=== PATIENT | female | born 1975 | race Caucasian/White ===

== ENCOUNTER 2018-03-19 16:18 | Emergency (ER) | payer OTHER ==
[~2018-03-19] VITALS: Ht 170.2 cm; Wt 123.3 kg
[2018-03-19 18:45] LABS: HEMOGLOBIN 12.7 G/DL (11.9-15.5); MCHC 34.3 G/DL (30.0-36.0); MCV 90.2 FL (83-99); PLATELET COUNT 220 K/uL (156-360); RBC DIS.WIDTH-CV 12.8 % (11.8-14.6); RBC DIS.WIDTH-SD 42.2 % (39-53); WHITE BLOOD COUNT 10.7 K/uL (4.1-10.2)
[2018-03-19] MEDS ORDERED: MOTRIN600 MG PO (18:53)
[2018-03-19] MEDS ORDERED: SEROQUEL100 MG PO (18:53)
[2018-03-19] MEDS ORDERED: NICODERM CQ1 EACH TD (18:53)
[2018-03-19] MEDS ORDERED: DESYREL 150 MG150 MG PO (18:55)
[2018-03-19] MEDS ORDERED: NYAMYC60 GM TP (18:55)
[2018-03-19] MEDS ORDERED: WELLBUTRIN SR100 MG PO (18:55)
[2018-03-19 19:13] LABS: CHLORIDE 102 mEq/L (99-109); POTASSIUM 4.1 mEq/L (3.7-5.4); SODIUM 139 mEq/L (136-147)
[2018-03-19 19:15] LABS: GLUCOSE 109 mg/dL (70-99)
[2018-03-19 19:19] LABS: GFR ESTIMATE (CALCULATED) > 59 mL/min/
[2018-03-19 19:20] LABS: UREA NITROGEN (BUN) 18 mg/dL (9-23)
[2018-03-19 19:27] LABS: QUANTITATIVE HCG < 4.0 MIU/ML
[2018-03-19 20:13] LABS: APPEARANCE SL.HAZY ((CLEAR)); BILIRUBIN NEGATIVE; BLOOD NEGATIVE; COLOR YELLOW ((YELLOW)); GLUCOSE (STRIP) NEGATIVE; KETONES NEGATIVE; LEUKOCYTES NEGATIVE; NITRITE NEGATIVE; PROTEIN (STRIP) NEGATIVE; UROBILINOGEN 0.2 MG/DL (0.2-1.0)
[2018-03-19 20:23] VITALS: BP 144/81
[2018-03-19 20:33] LABS: BACTERIA NONE SEEN /HPF; EPITHELIAL CELLS RARE /HPF; MUCUS NONE SEEN /LPF; RED BLOOD CELLS 0-5 /HPF (0-5); UCUL ADDED? NO; WHITE BLOOD CELLS 0-5 /HPF (0-5)
== END 2018-03-19 20:25 | disposition home or self-care (01) ==
LOC: EME 16:18
PROVIDERS: Physician Assistant
DX: G89.29 Other chronic pain (principal); R59.0 Localized enlarged lymph nodes; Z76.0 Encounter for issue of repeat prescription; N83.202 Unspecified ovarian cyst, left side; F31.9 Bipolar disorder, unspecified; F41.9 Anxiety disorder, unspecified; F17.200 Nicotine dependence, unspecified, uncomplicated; Z88.1 Allergy status to other antibiotic agents
CPT/HCPCS: 76856; 80048; 81003; 84702; 85027; 99281; 99285; J1885

== ENCOUNTER 2018-04-05 11:30 | Emergency (ER) | payer OTHER ==
[~2018-04-05] VITALS: Ht 170.2 cm; Wt 127.3 kg
[~2018-04-05 11:30] MED LIST: DESYREL 150 MG150 MG PO; MOTRIN600 MG PO; NICODERM CQ1 EACH TD; NYAMYC60 GM TP; SEROQUEL100 MG PO; WELLBUTRIN SR100 MG PO
[2018-04-05 12:35] LABS: HEMATOCRIT 37.5 % (36.0-46.0); MCH 31.5 PG (29.0-34.0); MCHC 34.7 G/DL (30.0-36.0); MCV 90.8 FL (83-99); PLATELET COUNT 236 K/uL (156-360); RBC DIS.WIDTH-CV 12.6 % (11.8-14.6); RED BLOOD COUNT 4.13 M/uL (3.80-5.20); WHITE BLOOD COUNT 7.6 K/uL (4.1-10.2)
[2018-04-05 12:52] LABS: CHLORIDE 107 mEq/L (99-109); POTASSIUM 4.3 mEq/L (3.7-5.4); SODIUM 139 mEq/L (136-147)
[2018-04-05 12:54] LABS: GLUCOSE 119 mg/dL (70-99)
[2018-04-05 12:58] LABS: GFR ESTIMATE (CALCULATED) > 59 mL/min/
[2018-04-05 12:59] LABS: UREA NITROGEN (BUN) 13 mg/dL (9-23)
[2018-04-05 13:05] LABS: TROP-I INTERPRETATION NEGATIVE; TROPONIN-I < 0.01 ng/mL (0.0-0.30)
[2018-04-05 14:15] VITALS: BP 124/65
== END 2018-04-05 14:16 | disposition home or self-care (01) ==
LOC: EME 11:30
DX: M54.41 Lumbago with sciatica, right side (principal); R06.02 Shortness of breath; Z76.0 Encounter for issue of repeat prescription; Z20.2 Contact with and (suspected) exposure to infections with a predominantly sexual mode of transmission; F17.200 Nicotine dependence, unspecified, uncomplicated; F31.9 Bipolar disorder, unspecified; F41.9 Anxiety disorder, unspecified; G89.29 Other chronic pain; Z88.1 Allergy status to other antibiotic agents
CPT/HCPCS: 71046; 80048; 84484; 85027; 93005; 99281; 99284; J0696; J1885

== ENCOUNTER 2018-04-13 16:13 | Emergency (ER) | payer OTHER ==
[~2018-04-13] VITALS: Ht 170.2 cm; Wt 128.0 kg
[2018-04-13] MEDS ORDERED: ESCITALOPRAM OX10 MG PO (16:56)
[2018-04-13 17:36] VITALS: BP 143/106
== END 2018-04-13 17:37 | disposition home or self-care (01) ==
LOC: EME 16:13
DX: Z76.0 Encounter for issue of repeat prescription (principal); F41.9 Anxiety disorder, unspecified; F32.9 Major depressive disorder, single episode, unspecified; Z88.1 Allergy status to other antibiotic agents
CPT/HCPCS: 99281; 99284